=== PATIENT | male | born 1955 | race Caucasian/White ===

== ENCOUNTER 2019-01-17 03:41 | Emergency (ER) | payer MEDICARE, MEDICAID ==
[~2019-01-17] VITALS: Ht 180.3 cm; Wt 68.9 kg
[~2019-01-17 03:41] MED LIST: ACET-687 PO; ACET500T73 PO; ALBU2.5V2 IH; ALBU90AE IH; AMLO-325 PO; AMLO10TA8 PO; AMLO5TAB4 PO; ASCO250T PO; ASPI-655 PO; ATOR40TA PO; CARV25TA PO; CETI10TA18 PO; CYAN250L PO; DOXY100V4 IV; ENOX40DI SQ; FAMO20TA5 PO; FERR325T15 PO; FLUT16SP; FLUT1BLS3 INH; FURO20TA3 PO; FURO40TA4 PO; GABA100C7 PO; GABA300C PO; GUAI600T31 PO; HUM100VI6 SUBCUT; HYDR-3101 PO; HYDR-3194 PO; HYDR-3469 PO; INSU100C SQ; INSU100C5 SQ; INSU100I13 SQ; INSU100V SQ; INSU100V13 SQ; INSU100V8 SQ; Ipratropium/Albuterol Sulfate IH; LEVO500T51 PO; LISI-410 PO; LISI2.5T PO; LISI40TA PO; METF10007 PO; METF500T PO; NICO-450 TD; ONDA2VIA2 IV; PENI500T PO; PRED20TA PO; PROM25TA10 PO; SITA100T PO; SULF1TAB24 PO; TICA90TA PO; TRAM50TA PO; Tamsulosin Hcl PO; VANC1.5P16 IV
--- NOTE | 2019-01-17 03:41 | NUR ---
ARRIVAL @ 0333 PATIENT FOUND DOWN AT [facility]. CPR INITIATED BY CORRECTION STAFF. EMS DISPATCHED TO FACILITY. EMS PERFORMED CPR FOR 20 MINUTES BEFORE REGAINING ROSC. UPON ARRIVAL TO ER, PATIENT IN ASYSTOLE. CPR IN PROGRESS AT TIME OF ARRIVAL. PER EMS REPORT, EPI x5 ADMINISTERED MANUFACTURING DEVELOPMENT ENGINEER. PATIENT ALSO INTUBATED AND IO ESTABLISHED MANUFACTURING DEVELOPMENT ENGINEER BY EMS. TRANSFERED OVER TO ER [facility]. HOOKED UP TO ALL MONITORS. PATIENT IN ASYSTOLE. NO PULSE. CPR CONTINUED.
--- NOTE | 2019-01-17 03:41 | NUR ---
TIME OF @ 0338 TIME OF @ 0338 PER MD OSMAR; CALLED AT BEDSIDE.
--- NOTE | 2019-01-17 04:01 | ER.PDOC ---
General Chief Complaint: Requesting Medical Care Stated Complaint: CODE TRAVEL OUT OF US: No Time seen by MD: 03:32 Source: EMS History of Present Illness Initial Comments patient arrives in cardiac arrest, ems notified to retirement with retirement staff completing cpr on patient, ems obtained iv and intubation and noted patient asystole upon their arrival, epi given and cpr completed in route, patient remained in asystole for approx 20 minutes and did have one return of sinus rythm with pulse, then approx 20 minutes before arrival to er patient went into asystole again, cpr started and patient given multiple doses of epi for a total of 5, patient arrives to er in asystole et tube in place from ems. Allergies: Coded Allergies: vancomycin (Verified Allergy, Unknown, 01/06/19) Home Meds Active Scripts Prednisone (PREDNISONE) 20 Mg Tablet, 40 MG PO DAILY for 1 Day, #1 TAB 0 Refills Prov:DELMA HILL MD 01/11/19 Insulin Glargine,Hum.rec.anlog (LANTUS) 100 Unit/1 Ml Vial, 27 UNIT SQ DAILY24 for 1 Day, #1 VIAL 0 Refills Prov:DELMA HILL MD 01/11/19 Hydralazine Hcl (HYDRALAZINE HCL) 25 Mg Tablet, 50 MG PO Q8 for 1 Day, #1 TAB 0 Refills Prov:DELMA HILL MD 01/11/19 Amlodipine Besylate (NORVASC) 5 Mg Tablet, 5 MG PO BID for 1 Day, #1 TAB 0 Refills Prov:DELMA HILL MD 01/11/19 [Ipratropium/Albuterol Sulfate] 3 ML AMPUL.NEB No Conflict Check, 3 ML IH RTTID for 1 Day, #1 VIAL 0 Refills Prov:DELMA HILL MD 01/11/19 Albuterol Sulfate (ALBUTEROL SULFATE) 2.5 Mg/3 Ml Vial.neb, 2.5 MG IH RTQ4 PRN for WHEEZING for 1 Day, #1 VIAL 0 Refills Prov:DELMA HILL MD 01/11/19 [Tamsulosin Hcl] 0.4 MG CAP.ER.24H No Conflict Check, 0.4 MG PO DAILY for 1 Day, VIAL 0 Refills Prov:DELMA HILL MD 01/11/19 Doxycycline Hyclate (DOXY 100) 100 Mg Vial, 100 MG IV BID for 1 Day, #1 VIAL 0 Refills Prov:DELMA HILL MD 01/11/19 Nicotine (NICOTINE PATCH) 1 Each Patch.td24, 1 EACH TD DAILY for 30 Days, #30 PATCH 0 Refills Prov:DELMA HILL MD 02/24/18 Famotidine (FAMOTIDINE) 20 Mg Tablet, 20 MG PO BID for 30 Days, TABLET Prov:GRADY PATRICK MD 12/26/17 Tramadol Hcl (TRAMADOL HCL) 50 Mg Tablet, 50 MG PO Q4HR PRN for PAIN for 30 Days, TABLET Prov:GRADY PATRICK MD 12/26/17 Aspirin (ASPIRIN EC) 81 Mg Tablet.dr, 81 MG PO DAILY for 30 Days Prov:GRADY PATRICK MD 12/26/17 Hydrocodone Bit/Acetaminophen (NORCO 7.5-325 TABLET) 7.5-3,251 Ea Tablet, 1 EACH PO Q4HR PRN for PAIN for 14 Days, #30 TABLET Prov:OLAYINKA MORA MD 07/24/17 Reported Medications Atorvastatin 40MG (LIPITOR 40MG) 40 Mg Tablet, 1 TAB PO HS, #90 TAB 1 Refill 01/06/19 Ticagrelor (BRILINTA) 90 Mg Tablet, 90 MG PO BID, TABLET 01/06/19 Cetirizine Hcl (CETIRIZINE HCL) 10 Mg Tablet, 1 TAB PO DAILY, #30 TAB 5 Refills 01/06/19 Guaifenesin (MUCINEX) 600 Mg Tablet.er, 1 TAB PO BID, #14 TAB 01/06/19 Carvedilol 25MG (COREG 25MG) 25 Mg Tablet, 1 TAB PO BID, #60 TAB 5 Refills 01/06/19 Gabapentin (GABAPENTIN) 100 Mg Capsule, 1 CAP PO TID, #90 CAP 2 Refills 01/06/19 Fluticasone/Umeclidin/Vilanter (Trelegy Ellipta 100-62.5-25) 100-62.5 Blst.w.dev, 1 INHALATION INH DAILY24 01/06/19 Ascorbic Acid (VITAMIN C) 250 Mg Tablet, 250 MG PO Q72H, TAB 01/06/19 Fluticasone Propionate (FLUTICASONE PROPIONATE) 16 Gm [place].susp, 2 SPR NA DAILY, #1 INHALER 11 Refills 01/06/19 Cyanocobalamin (Vitamin B-12) (VITAMIN B-12) 250 Mcg Lozenge, 250 MCG PO DAILY24, DELBERT 01/06/19 Discontinued Reported Medications Amlodipine Besylate (NORVASC) 5 Mg Tablet, 1 TAB PO DAILY, #30 TAB 5 Refills 01/06/19 Insulin Glargine,Hum.rec.anlog (LANTUS SOLOSTAR) 100 Unit/1 Ml Insuln.pen, 10 UNITS SQ HS, #15 MILLILITER 3 Refills 01/06/19 Lisinopril (LISINOPRIL) 40 Mg Tablet, 1 TAB PO DAILY, #30 TAB 5 Refills 01/06/19 Sitagliptin Phosphate (JANUVIA) 100 Mg Tablet, 1 TAB PO DAILY, #30 TAB 5 Refills 01/06/19 Promethazine Hcl (PROMETHAZINE HCL) 25 Mg Tablet, 25 MG PO Q8HR for NAUSEA/VOMITING, TAB 01/06/19 Albuterol Sulfate (Proair Respiclick) 90 Mcg Aer.pow.ba, 90 MCG IH Q6HR for SOB, PKG 01/06/19 Ferrous Sulfate (FERROUS SULFATE) 325 Mg Tablet, 1 TAB PO Q72H, #30 TAB 3 Refills 01/06/19 Insulin Glargine,Hum.rec.anlog (LANTUS) 100 Unit/1 Ml Vial, 25 UNITS SQ DAILY24, VIAL 01/06/19 Furosemide (FUROSEMIDE) 40 Mg Tablet, 1 TAB PO DAILY, #30 TAB 5 Refills 01/06/19 Past Medical History Medical History: congestive heart failure, COPD, diabetes, high cholesterol, heart attack, hypertension, renal disease, vascular disease Surgical History: cardiac cath, stent Social History Drug Use: none Physical Exam General Appearance: Other EENT: other Respiratory: other Neurologic/Psychiatric: Other Comments patient unresponsive with no pulse and no spontaneous respirations, et tube in place, decreased breath sound bilateral, pupils fixed and dilated, monitor shows asystole. code called at 0338 hours as ems had completed approximately 40 minutes of cpr and patient in asystole the majority of the duration, and had been in asystole for approximately 20 minutes continuous before arrival. Results/Orders Results/Orders Vital Signs Date Time Temp Pulse Resp B/P (MAP) Pulse Ox O2 Delivery O2 Flow Rate FiO2 01/17/19 03:41 20 01/11/19 13:55 62 01/06/19 20:52 S/T Course Sepsis Screening Results: Posi: NEGATIVE Sepsis Qualifier/Stage: NO DEFINITE RISK Duration or Total Time Spent w: 45 MIN Vitals & review Data Vital Sign - Last 24 Hours 01/06/19 01/11/19 01/17/19 20:52 13:55 03:41 Pulse 62 Resp 20 O2 Delivery S/T Sepsis Infection Criteria Pres: None LEVEL 1 SEPSIS INFECTION CRITE: None/Not assessed LEVEL 2-SIRS (LIST ALL THAT AP: None/Not assessed Cardiovascular Evidence: Not Assessed or None Hematologic Evidence: None/Not assessed Hepatic Evidence: None/Not assessed Metabolic Evidence: None/Not assessed Neurological Evidence: None/Not assessed Respiratory Evidence: Need for O2 to keep>90% Renal Evidence: Creatinine Lvl>2.0 Departure Time of Disposition: 04:10 Disposition: 20 Impression: Primary Impression: Cardiac arrest Condition: Referrals: AUSTIN WARD DELIVERY ARCHITECT (PCP) PRIMARY CARE PROVIDER Duration or Time Spent with Pa: DENISA ALVAREZ MD Jan 17, 2019 04:01
--- NOTE | 2019-01-17 04:27 | NUR ---
Dispatch Dispatch notifed of Certified Juvenile Probation Officer needed at ER for
--- NOTE | 2019-01-17 04:28 | NUR ---
[facility] CALLED @ 0428 BY MUMTAZ DRUMMOND RN. SPOKE WITH HILLARY. CASE #[id number]. STATES PATIENT IS A CANDIDATE FOR TISSUE AND EYE DONATION. [facility] TO SPEAK WITH FAMILY AND CALL BACK WITH UPDATE.
--- NOTE | 2019-01-17 05:30 | NUR ---
STUDY MANAGER JUDGE MCNAIR AT PATIENT'S BEDSIDE.
--- NOTE | 2019-01-17 06:01 | NUR ---
ILAN THORTNON WITH ILAN DIEGO ON PHONE.
--- NOTE | 2019-01-17 06:30 | NUR ---
[facility] HERE TO TAKE BODY.
== END 2019-01-17 06:30 | disposition expired ==
LOC: ER 03:41 → EDBD 03:41 → ER 06:30
DX: I46.9 Cardiac arrest, cause unspecified (principal); E11.9 Type 2 diabetes mellitus without complications; E78.00 Pure hypercholesterolemia, unspecified; I11.0 Hypertensive heart disease with heart failure; I25.2 Old myocardial infarction; I50.9 Heart failure, unspecified; J44.9 Chronic obstructive pulmonary disease, unspecified; Z46.82 Encounter for fitting and adjustment of non-vascular catheter; Z79.4 Long term (current) use of insulin; Z79.82 Long term (current) use of aspirin; Z79.899 Other long term (current) drug therapy; Z88.1 Allergy status to other antibiotic agents
CPT/HCPCS: 31500; 92950; 99285